=== PATIENT | female | born 1980 | race Caucasian/White ===

== ENCOUNTER → 2017-01-28 | Outpatient (CLI) | payer OTHER | LOC: FIMAGING 12:21 | DX: N63 Unspecified lump in breast (principal) | CPT/HCPCS: G0204 ==

== ENCOUNTER 2018-09-27 22:00 | Emergency (ER) | payer OTHER ==
[2018-09-27] MEDS ORDERED: NS 1,000 ML IV ONE (22:24)
[2018-09-27] MEDS ORDERED: KETOROLAC 15 MG/1 ML SDV IVP ONE (22:24)
[2018-09-27] MEDS ORDERED: ONDANSETRON 4 MG/2 ML VIAL IVP ONE (22:24)
--- NOTE | 2018-09-27 22:27 | EDPHY ---
H & P Stated Complaint: "LABOR PAIN", BUT NOT Time Seen by Provider: 09/27/18 22:10 HPI/ROS: HPI The patient presents with lower abdominal pains which began at approximately 9: 15 p.m. Tonight. Pain started slowly and got progressively worse. It is intermittent and feels like a pressure like sensation though occasionally becomes sharp. She took a warm shower to see if this would help her symptoms, however it did not so she comes to the emergency department. She feels nauseated. She has not vomited. She has never had this pain before. She reports increased stress over the last several weeks. She had a small bowel movement at noon today and is not sure if she could be constipated. REVIEW OF SYSTEMS 10 systems were reviewed and negative with the exception of the elements mentioned in the history of present illness. PMHx: History of ocular migraines Soc Hx: Nonsmoker PHYSICAL General Appearance: Alert, uncomfortable appearing Eyes: Pupils equal and round no pallor or injection ENT, Mouth: Mucous membranes moist Respiratory: There are no retractions, lungs are clear to auscultation Cardiovascular: Regular rate and rhythm Gastrointestinal: Abdomen is soft and tender in the lower quadrants bilaterally , no masses, bowel sounds normal Neurological: A&O, moves all extremities Skin: Warm and dry, no rashes Musculoskeletal: Neck is supple non tender Extremities: symmetrical, full range of motion Psychiatric: Patient is oriented X 3, there is no agitation Source: Patient Exam Limitations: No limitations - Personal History LMP (Females 10-55): IUD In Place Current Tetanus Diphtheria and Acellular Pertussis (TDAP): Yes Tetanus Vaccine Date: 2014 - Medical/Surgical History Hx Asthma: No Hx Chronic Respiratory Disease: No Hx Diabetes: No Hx Cardiac Disease: No Hx Renal Disease: No Hx Cirrhosis: No Hx Alcoholism: No Hx HIV/AIDS: No Hx Splenectomy or Spleen Trauma: No Other PMH: BREAST AUGMENTATION - Social History Smoking Status: Never smoked Constitutional: Initial Vital Signs Temperature (C) 36.4 C 09/27/18 22:04 Heart Rate 98 09/27/18 22:04 Respiratory Rate 16 09/27/18 22:04 Blood Pressure 124/80 H 09/27/18 22:04 O2 Sat (%) 97 09/27/18 22:04 O2 Delivery Mode Room Air Allergies/Adverse Reactions: No Known Allergies Allergy (Unverified 12/03/18 22:03) Home Medications: Medication Instructions Recorded NK [No Known Home Meds] 09/27/18 Medical Decision Making - Diagnostics Imaging Results: Imaging Impressions Pelvic/Renal Ultrasound 09/27/18 22:24 Impression: 1. Heterogeneous mixed echogenicity possible solid smooth oval nodule within the left ovary. This is nonspecific and relatively small in size. This could represent small teratoma versus epithelial tumor. Consider follow-up ultrasound in 2-3 months to evaluate for any interval change. 2. Normal-appearing uterus with IUD in good position. Findings discussed with Nadya Raman MD at 23:27 hour, 09/27/2018. Abdomen CT 09/27/18 23:39 Impression: 1. Nonspecific soft tissue density left adnexa corresponding with 18 years echogenicity lesion on prior ultrasound. This is nonspecific. 2. Moderate constipation. 3. Large left paracentral disk protrusion at L5-S1 with compression upon left S1 nerve root. 4. Dilated appendix was not seen although the appendix was not positively identified. 5. Incidental nonobstructive 3 x 2 mm calculus mid left kidney. Findings discussed with Nadya Raman MD at 0:15 hour, 09/28/2018. Imaging: Discussed imaging studies w/ bingo caller Radiologist Differential Diagnosis: 38-year-old female presents from home with several hours of lower abdominal pain associated with nausea and possible constipation. On exam, uncomfortable appearing with tenderness in the lower quadrants. Differential diagnosis includes ovarian cyst with torsion, ruptured ovarian cyst , IUD migration, constipation, appendicitis. In the emergency department, labs were checked and were unremarkable. Patient was given IV fluids and medication for pain. Initially she underwent pelvic ultrasound which did show a small left-sided ovarian mass though I doubt this is responsible for her symptoms. I reexamined her and she continued to have tenderness in both of her lower quadrants. Thus, decision was made to pursue CT scan which was relatively unremarkable and demonstrated constipation. As I suspect her symptoms could be related to constipation and I will discharge her with magnesium citrate and instructions for MiraLax. I did let her know about her ovarian lesion and need for follow-up. She is able to do this. We have discussed return precautions. - Data Points Laboratory Results: Laboratory Results 09/27/18 22:29 09/27/18 22:29 09/27/18 09/27/18 09/27/18 22:30 22:29 22:29 WBC RBC Hgb Hct MCV MCH MCHC RDW Plt Count MPV Neut % (Auto) Lymph % (Auto) Sebastian % (Auto) Eos % (Auto) Baso % (Auto) Nucleat RBC Rel Count Absolute Neuts (auto) Absolute Lymphs (auto) Absolute Monos (auto) Absolute Eos (auto) Absolute Basos (auto) Absolute Nucleated RBC Immature Gran % Immature Gran # RBC/WBC/PLT Morphology Platelet Estimate Sodium 139 mEq/L mEq/L (135-145) Potassium 3.9 mEq/L mEq/L (3.3-5.0) Chloride 109 mEq/L mEq/L (97-110) Carbon Dioxide 20 mEq/l L mEq/l (22-31) Anion Gap 10 mEq/L mEq/L (6-14) BUN 11 mg/dL mg/dL (7-23) Creatinine 0.7 mg/dL mg/dL (0.6-1.0) Estimated GFR > 60 Glucose 93 mg/dL mg/dL (70-100) Calcium 9.4 mg/dL mg/dL (8.5-10.4) Total Bilirubin 0.2 mg/dL mg/dL (0.1-1.4) AST 18 IU/L IU/L (14-46) ALT 25 IU/L IU/L (9-52) Alkaline Phosphatase 62 IU/L IU/L (38-126) Total Protein 7.2 g/dL g/dL (6.3-8.2) Albumin 4.1 g/dL g/dL (3.5-5.0) Beta HCG, Qual NEGATIVE Urine Color PALE YELLOW Urine Appearance CLEAR Urine pH 7.0 (5.0-7.5) Ur Specific Lyons 1.016 (1.002-1.030) Urine Protein NEGATIVE (NEGATIVE) Urine Ketones NEGATIVE (NEGATIVE) Urine Blood NEGATIVE (NEGATIVE) Urine Nitrate NEGATIVE (NEGATIVE) Urine Bilirubin NEGATIVE (NEGATIVE) Urine Urobilinogen NEGATIVE EU EU (0.2-1.0) Ur Leukocyte Esterase NEGATIVE (NEGATIVE) Urine Glucose NEGATIVE (NEGATIVE) 09/27/18 22:29 WBC 11.47 10^3/uL H 10^3/uL (3.80-9.50) RBC 4.68 10^6/uL 10^6/uL (4.18-5.33) Hgb 14.6 g/dL g/dL (12.6-16.3) Hct 40.6 % % (38.0-47.0) MCV 86.8 fL fL (81.5-99.8) MCH 31.2 pg pg (27.9-34.1) MCHC 36.0 g/dL g/dL (32.4-36.7) RDW 12.3 % % (11.5-15.2) Plt Count 385 10^3/uL 10^3/uL (150-400) MPV 8.8 fL fL (8.7-11.7) Neut % (Auto) 43.7 % % (39.3-74.2) Lymph % (Auto) 45.9 % H % (15.0-45.0) Sebastian % (Auto) 8.2 % % (4.5-13.0) Eos % (Auto) 1.2 % % (0.6-7.6) Baso % (Auto) 0.7 % % (0.3-1.7) Nucleat RBC Rel Count 0.0 % % (0.0-0.2) Absolute Neuts (auto) 5.01 10^3/uL 10^3/uL (1.70-6.50) Absolute Lymphs (auto) 5.26 10^3/uL H 10^3/uL (1.00-3.00) Absolute Monos (auto) 0.94 10^3/uL H 10^3/uL (0.30-0.80) Absolute Eos (auto) 0.14 10^3/uL 10^3/uL (0.03-0.40) Absolute Basos (auto) 0.08 10^3/uL 10^3/uL (0.02-0.10) Absolute Nucleated RBC 0.00 10^3/uL 10^3/uL (0-0.01) Immature Gran % 0.3 % % (0.0-1.1) Immature Gran # 0.03 10^3/uL 10^3/uL (0.00-0.10) RBC/WBC/PLT Morphology TNP Platelet Estimate TNP Sodium Potassium Chloride Carbon Dioxide Anion Gap BUN Creatinine Estimated GFR Glucose Calcium Total Bilirubin AST ALT Alkaline Phosphatase Total Protein Albumin Beta HCG, Qual Urine Color Urine Appearance Urine pH Ur Specific Lyons Urine Protein Urine Ketones Urine Blood Urine Nitrate Urine Bilirubin Urine Urobilinogen Ur Leukocyte Esterase Urine Glucose Medications Given: Discontinued Medications Fentanyl (Sublimaze) 50 mcg IVP EDNOW ONE Stop: 09/27/18 23:01 Last Admin: 09/27/18 23:04 Dose: 50 mcg Sodium Chloride (Ns) 1,000 mls @ 0 mls/hr IV EDNOW ONE; Wide Open PRN Reason: Protocol Stop: 09/27/18 22:25 Last Admin: 09/27/18 22:29 Dose: 1,000 mls Ketorolac Tromethamine (Toradol) 15 mg IVP EDNOW ONE Stop: 09/27/18 22:25 Last Admin: 09/27/18 22: Dose: 15 mg Magnesium Citrate (Magnesium Citrate) 300 ml PO ONCE ONE Stop: 09/28/18 00:25 Last Admin: 09/28/18 00:31 Dose: 300 ml Ondansetron HCl (Zofran) 4 mg IVP EDNOW ONE Stop: 09/27/18 22:25 Last Admin: 09/27/18 22:29 Dose: 4 mg Departure - Departure Disposition: Home, Routine, Self-Care Clinical Impression: Lower abdominal pain, Ovarian mass, left Constipation Qualifiers: Constipation type: unspecified constipation type Qualified Code(s): K59.00 - Constipation, unspecified Condition: Good Instructions: Constipation (ED) Additional Instructions: I would like for you to use the magnesium citrate at home. If you're able to have a bowel movement and feel better, then I would recommend that you start taking MiraLax 17 g once daily for a week and make sure to drink plenty of fluids. If you have ongoing pain, I would like for you to return to the emergency department for further testing. Your ultrasound and scan today showed that you have a mass on your ovary on the left that will need a recheck in a few months for repeat ultrasound. I have given you the name of Dr. Felix our OBGYN on-call. You can make an appointment with her for follow-up. Referrals: Linnea Felix MD [Medical Doctor] - As per Instructions Jose Maynard DO [Doctor of Osteopathy] - As per Instructions Stand Alone Forms: Work Excuse
[2018-09-27 22:40] LABS: PLATELET COUNT 385 10^3/uL (150-400)
[2018-09-27] MEDS ORDERED: fentaNYL 100 MCG/2 ML INJ IVP ONE (23:00)
[2018-09-27] MEDS ORDERED: fentaNYL 100 MCG/2 ML INJ ONE (23:02)
[2018-09-27] MEDS ORDERED: IOPAMIDOL (ISOVUE-300) 100 ML BTL ONE (23:45)
[2018-09-28] MEDS ORDERED: MAGNESIUM CITRATE 300 ML BOTTLE PO ONE (00:24)
[2018-09-28 00:38] VITALS: BP 123/70
== END 2018-09-28 00:38 | disposition home or self-care (01) ==
DX: N83.9 Noninflammatory disorder of ovary, fallopian tube and broad ligament, unspecified (principal); K59.00 Constipation, unspecified; E86.9 Volume depletion, unspecified; N20.0 Calculus of kidney; K76.89 Other specified diseases of liver
CPT/HCPCS: 96374; J1885; J2405; J3010; Q9967